=== PATIENT | female | born 1950 | race Caucasian/White ===

== ENCOUNTER 2016-04-26 05:35 | Inpatient (IN) | payer OTHER ==
[~2016-04-26] VITALS: Ht 158.8 cm; Wt 95.8 kg
[~2016-04-26 05:35] MED LIST: ASPIRIN EC325 MG PO; CALTRATE 600 +1 EAC1 PO; CELECOXIB200 MG PO; CRESTOR5 MG PO; DYAZIDE, MA1 CAPSULE PO; FIBER GUMMIES1 EACH PO; FISH OIL OMEGA1 EAC1 PO; FLONASE16 G1 BOTH NARES; GLUCOSAMINE &1 EAC1 PO; HYDROCODON-ACE1 EAC7 PO; IRON325 M1 PO; LO-DOSE ASPIRIN81 M2 PO; NEXIUM40 MG PO; TYLENOL EXTRA500 MG PO; VITAMIN C1000 MG PO; VITAMIN E400 UNIT PO; WOMEN'S DAILY1 EAC4 PO; ZYRTEC10 M2 PO
[2016-04-26 05:54] VITALS: BP 160/77
[2016-04-26 10:40] VITALS: BP 160/77
[2016-04-26 16:00] VITALS: BP 137/70
[2016-04-26 20:25] VITALS: BP 150/68
[2016-04-26 23:21] VITALS: BP 122/58
[2016-04-27 04:25] VITALS: BP 145/74
[2016-04-27 05:03] LABS: CHLORIDE 102 mEq/L (99-109); POTASSIUM 3.4 mEq/L (3.7-5.4); SODIUM 138 mEq/L (136-147)
[2016-04-27 05:04] LABS: GLUCOSE 140 mg/dL (70-99)
[2016-04-27 05:06] LABS: ANION GAP 10 MEQ/L (2-14)
[2016-04-27 05:07] LABS: HEMATOCRIT 36.2 % (36.0-46.0); MCV 88.5 FL (83-99)
[2016-04-27 05:08] LABS: GFR ESTIMATE (CALCULATED) > 59 mL/min/
[2016-04-27 05:09] LABS: UREA NITROGEN (BUN) 12 mg/dL (9-23)
[2016-04-27 08:00] VITALS: BP 147/74
[2016-04-27] MEDS ORDERED: ASPIRIN EC325 MG PO (09:20)
[2016-04-27] MEDS ORDERED: SENNA PLUS TAB1 EACH PO (09:22)
[2016-04-27] MEDS ORDERED: HYDROCODON-ACE1 EAC7 PO (09:22)
[2016-04-27] MEDS ORDERED: CELECOXIB200 MG PO (09:22)
[2016-04-27 11:48] VITALS: BP 148/70
== END 2016-04-27 13:07 | DRG 470 ==
LOC: 2SOUTH 05:35 → 3WEST 10:13 → 2SOUTH 10:19 → 3WEST 04-27 13:07
PROVIDERS: Orthopaedic Surgery
PROC: 0SRD0J9 Replacement of Left Knee Joint with Synthetic Substitute, Cemented, Open Approach (ICD-10-PCS; principal; 2016-04-26)
DX: M17.12 Unilateral primary osteoarthritis, left knee (principal); I10 Essential (primary) hypertension; E78.5 Hyperlipidemia, unspecified; K21.9 Gastro-esophageal reflux disease without esophagitis; G47.30 Sleep apnea, unspecified; Z90.49 Acquired absence of other specified parts of digestive tract; Z96.651 Presence of right artificial knee joint; Z68.35 Body mass index [BMI] 35.0-35.9, adult
CPT/HCPCS: 80048; 85014; 85018; J0690; J1885; J2250; J2405; J3010; J3370; J7050; S0020